=== PATIENT | female | born 1995 | race Caucasian/White ===

== ENCOUNTER → 2017-12-02 | Outpatient (CLI) | payer BC ==
[2017-12-02 18:31] LABS: T.VAGINALIS (WET MOUNT) NO TRICHOMONAS SEEN
[2017-12-02 18:32] LABS: BACTERIA (WET MOUNT) 3+ BACTERIA SEEN; RBCS (WET MOUNT) 1+ RBCS SEEN; WBCS (WET MOUNT) 2+ WBCS SEEN; YEAST (WET MOUNT) NO YEAST SEEN
== END ==
LOC: LAB 18:20
PROVIDERS: ATTEND Emergency Medicine
DX: N89.8 Other specified noninflammatory disorders of vagina (principal)
CPT/HCPCS: 87210

== ENCOUNTER 2017-12-17 02:09 | Emergency (ER) | payer BC, OTHER ==
[2017-12-17] MEDS ORDERED: LIDOCAINE 5% (700 MG) TRANSDERMAL ADH..PATCH TP ONE (02:35)
[2017-12-17] MEDS ORDERED: IBUPROFEN 600 MG TABLET PO ONE (02:35)
[2017-12-17] MEDS ORDERED: ACETAMINOPHEN 325 MG TABLET PO ONE (02:35)
--- NOTE | 2017-12-17 03:21 | ER Document Report ---
ED General - General Chief Complaint: Knee Injury Stated Complaint: KNEE INJURY Time Seen by Provider: 12/17/17 02:35 Notes: Patient is a 22-year-old female without past medical history who presents with 24 hours of medial left knee pain. 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 He describes it as a mild, throbbing, constant pain. She states that she heard a crack or pop while doing lunges at the gym 2 days ago but did not have any pain until today when she was on her feet most of the day. She states that she went home the pain improved actually iced and rested the area. She states however that she did notice some swelling and that prompted her come to the emergency department for further assessment. She denies any history of similar injury in the past. She is able to ambulate without difficulty. She denies any additional injuries or concerns. She has not seen a primary care doctor regarding these concerns. TRAVEL OUTSIDE OF THE [place] IN LAST 30 DAYS: No - Related Data Allergies/Adverse Reactions: No Known Allergies Allergy (Unverified 12/17/17 02:24) Past Medical History - General Information source: Patient - Social History Smoking Status: Never Smoker Frequency of alcohol use: None Drug Abuse: None Lives with: Friend Family History: Reviewed & Not Pertinent Patient has suicidal ideation: No Patient has homicidal ideation: No Renal/ Medical History: Denies: Hx Peritoneal Dialysis Review of Systems - Review of Systems Notes: Constitutional: Negative for fever. Eyes: Negative for visual changes. ENT: Negative for facial injury Cardiovascular: Negative for chest injury. Respiratory: Negative for shortness of breath. Gastrointestinal: Negative for abdominal injury. Genitourinary: Negative for genital injury Musculoskeletal: Positive for right knee injury Skin: Negative for laceration/abrasions. Neurological: Negative for head injury. Physical Exam - Vital signs Vitals: Temp Pulse Resp BP Pulse Ox 97.6 F 86 16 132/97 H 98 12/17/17 02:22 12/17/17 02:22 12/17/17 02:22 12/17/17 02:22 12/17/17 02:22 Interpretation: Normal Notes: PHYSICAL EXAMINATION: GENERAL: Well-appearing, well-nourished and in no acute distress. HEAD: Atraumatic, normocephalic. EYES: sclera anicteric, conjunctiva are normal. ENT: Moist mucous membranes. NECK: Normal range of motion LUNGS: Normal work of breathing HEART: 2+ radial pulses bilaterally, 2+ DP pulses bilaterally EXTREMITIES: no pitting or edema. No cyanosis. Full flexion extension of the left knee without any difficulty. The patient is able to move the knee in full extension without any difficulty. She is able to flex the knee to 90 without complication. There is no significant swelling, ecchymosis or deformity of the knee. NEUROLOGICAL: No focal neurological deficits. Moves all extremities spontaneously and on command. PSYCH: Normal mood, normal affect. SKIN: Warm, Dry, normal turgor, no rashes or lesions noted. Course - Re-evaluation Re-evalutation: 12/17/17 03:19 No evidence of a septic joint, gout flare, dislocation, or fracture on exam and imaging. Patient's clinical history is most consistent with a ligamentous injury likely the lateral collateral ligament of the knee. She has full range of motion of the knee without any difficulty. No significant swelling, bruising or deformity to the knee. BETO greater than 0.9. Vitals wnl. At this time, I do not see an indication for labs or further imaging. At this time will discharge with return precautions and follow-up recommendations. Verbal discharge instructions given a the bedside and opportunity for questions given. Medication warnings reviewed. Patient is in agreement with this plan and has verbalized understanding of return precautions and the need for primary care follow-up in the next 24-72 hours. - Vital Signs Vital signs: Temp Pulse Resp BP Pulse Ox 97.6 F 86 16 132/97 H 98 12/17/17 02:22 12/17/17 02:22 12/17/17 02:22 12/17/17 02:22 12/17/17 02:22 - Diagnostic Test Radiology reviewed: Image reviewed, Reports reviewed Radiology results interpreted by me: 12/17/17 03:51 Left knee x-ray: No acute fracture or dislocation Discharge - Discharge Clinical Impression: Left knee pain Qualifiers: Chronicity: acute Qualified Code(s): M25.562 - Pain in left knee Condition: Good Disposition: HOME, SELF-CARE Additional Instructions: Your x-ray does not show any acute fracture today. You likely have a ligamentous strain. You should continue to take anti-inflammatories such as ibuprofen 600 mg every 6 hours. Continue to apply ice to the area is much your able. Please follow-up with your primary care physician if you do not have improving your symptoms in the next 1-2 weeks. Please return immediately if you develop weakness, numbness, spreading redness from the area, or any other symptoms that are concerning to you.
--- NOTE | 2017-12-17 03:57 | RADIOLOGY REPORT (SQ) ---
EXAM DESCRIPTION: KNEE LEFT 4 VIEW CLINICAL HISTORY: 22 years, Female, pain s/p injury COMPARISON: None. NUMBER OF VIEWS: 4 LIMITATIONS: None. Findings: Bones, joints, and soft tissues of KNEE LEFT 4 VIEW appear intact. 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 IMPRESSION: No acute findings.
[2017-12-17 04:38] VITALS: BP 128/68
== END 2017-12-17 04:38 | disposition home or self-care (01) ==
LOC: ER 02:09
DX: M25.562 Pain in left knee (principal)
CPT/HCPCS: 99283

== ENCOUNTER → 2018-02-20 | Outpatient (CLI) | payer SELFPAY ==
[2018-02-20 14:57] LABS: T.VAGINALIS (WET MOUNT) NO TRICHOMONAS SEEN
[2018-02-20 14:58] LABS: BACTERIA (WET MOUNT) 4+ BACTERIA SEEN; EPITHELIALS (WET MOUNT) 3+ EPITHELIALS SEEN; RBCS (WET MOUNT) NO RBCS SEEN; WBCS (WET MOUNT) 1+ WBCS SEEN; YEAST (WET MOUNT) NO YEAST SEEN
[2018-02-20 16:25] LABS: CHLAM PCR NOT DETECTED (NOT DETECT); GON PCR NOT DETECTED (NOT DETECT)
== END ==
LOC: LAB 14:44
PROVIDERS: ATTEND Nurse Practitioner Acute Care
DX: N89.8 Other specified noninflammatory disorders of vagina (principal)
CPT/HCPCS: 87210; 87491; 87591

== ENCOUNTER 2018-05-05 14:47 | Emergency (ER) | payer BC ==
[2018-05-05] MEDS ORDERED: IBUPROFEN 800 MG TABLET PO ONE (15:58)
--- NOTE | 2018-05-05 15:59 | ER Document Report ---
ED Extremity Problem, Lower - General Chief Complaint: Toe Injury Stated Complaint: TOE INJURY Time Seen by Provider: 05/05/18 15:56 Mode of Arrival: Wheelchair Information source: Patient Notes: 23-year-old female presents to ED for complaint of right fifth toe pain. She states she not sure how she injured her toe but she injured it last night while she was drinking. She states she has had severe pain all day in her foot and is not been able to walk on her foot due to the pain. TRAVEL OUTSIDE OF THE [place] IN LAST 30 DAYS: No - HPI Patient complains to provider of: Injury, Pain, Swelling Location: 5th Toe - Right Occurred: Yesterday Where: Public place Onset/Duration: Persistent Quality of pain: Sharp, Throbbing Severity: Moderate Pain Level: 4 Context: Wearing shoes Recent injury: Yes Associated symptoms: Painful ambulation, Other - She is not sure how she injured her foot Exacerbated by: Hanging down, Movement, Walking - Related Data Allergies/Adverse Reactions: No Known Allergies Allergy (Verified 05/05/18 14:49) Past Medical History - General Information source: Patient - Social History Smoking Status: Current Every Day Smoker Cigarette use (# per day): Yes - Pack per day Chew tobacco use (# tins/day): No Smoking Education Provided: Yes - 4 min Frequency of alcohol use: Social Drug Abuse: None Occupation: Chest Lives with: Friend Family History: Reviewed & Not Pertinent Patient has suicidal ideation: No Patient has homicidal ideation: No - Past Medical History Cardiac Medical History: Reports: None Pulmonary Medical History: Reports: None EENT Medical History: Reports: None Neurological Medical History: Reports: None Endocrine Medical History: Reports: None Renal/ Medical History: Reports: None Malignancy Medical History: Reports: None GI Medical History: Reports: None Musculoskeletal Medical History: Reports Hx Musculoskeletal Trauma Skin Medical History: Reports None Psychiatric Medical History: Reports: Hx Depression Traumatic Medical History: Reports: Hx Fractures - Left arm Infectious Medical History: Reports: None Past Surgical History: Reports: Hx Oral Surgery - Oral surgery and wisdom teeth , Hx Tonsillectomy - Immunizations Immunizations up to date: Yes Review of Systems - Review of Systems Constitutional: No symptoms reported EENT: No symptoms reported Cardiovascular: No symptoms reported Respiratory: No symptoms reported Gastrointestinal: No symptoms reported Genitourinary: No symptoms reported Female Genitourinary: No symptoms reported Musculoskeletal: Other - Discomfort to the right fifth toe Skin: No symptoms reported Hematologic/Lymphatic: No symptoms reported Neurological/Psychological: No symptoms reported -: Yes All other systems reviewed and negative Physical Exam - Vital signs Vitals: Temp Pulse Resp BP Pulse Ox 98 F 94 14 121/89 H 99 05/05/18 14:50 05/05/18 14:50 05/05/18 14:50 05/05/18 14:50 05/05/18 14:50 Interpretation: Normal - General General appearance: Appears well, Alert - HEENT Head: Normocephalic, Atraumatic Eyes: Normal Pupils: PERRL - Respiratory Respiratory status: No respiratory distress Chest status: Nontender Breath sounds: Normal Chest palpation: Normal - Cardiovascular Rhythm: Regular Heart sounds: Normal auscultation Murmur: No - Abdominal Inspection: Normal Distension: No distension Bowel sounds: Normal Tenderness: Nontender Organomegaly: No organomegaly - Back Back: Normal, Nontender - Extremities General upper extremity: Normal inspection, Nontender, Normal color, Normal ROM , Normal temperature General lower extremity: Normal color, Normal ROM, Normal temperature, Normal weight bearing. No: Shirley's sign Foot: Tender, Deformity, Ecchymosis, No evidence of FB, Other - Right fifth toe deformity pain swelling. No: Edema, Instability, Laceration, Metatarsal compress. pain, Nail injury, Navicular tenderness, Puncture wound, Tender 5th metatarsal - Neurological Neuro grossly intact: Yes Cognition: Normal Orientation: AAOx4 [place] Coma Scale Eye Opening: Spontaneous Lauren Coma Scale Verbal: Oriented [place] Coma Scale Motor: Obeys Commands Lauren Coma Scale Total: 15 Speech: Normal Motor strength normal: LUE, RUE, LLE, RLE Sensory: Normal - Psychological Associated symptoms: Normal affect, Normal mood - Skin Skin Temperature: Warm Skin Moisture: Dry Skin Color: Normal Course - Re-evaluation Re-evalutation: 05/05/18 18:30 Has been waiting for patient to get a ride so I could reduce the dislocation to her right fifth toe. I have offered a digital block the toe multiple times and patient refused. She agreed to have the toe reduced if I gave her narcotics and she had a ride. Patient finally agreed to have the toe reduced with a digital block and while I was waiting to get her put into the room she finally got a ride and now does not want a digital block. - Vital Signs Vital signs: Temp Pulse Resp BP Pulse Ox 98 F 18 L 16 130/80 H 100 05/05/18 19:21 05/05/18 19:21 05/05/18 19:21 05/05/18 19:21 05/05/18 19:21 - Diagnostic Test Radiology reviewed: Image reviewed, Reports reviewed Procedures - Immobilization Right Toe 5th digit Time completed: 19:28 Pre-Proc Neuro Vasc Exam: Normal Immobilizer type: Crutches, Post-op shoe, Other - Fifth toe taped to fourth toe Performed by: RN Post-Proc Neuro Vasc Exam: Normal Alignment checked and good: Yes - Joint Reduction/Fracture Care Right Toe 5th digit Time completed: 19:00 Consent obtained: Yes - verbal Conscious sedation: No Pre-procedure NV exam: Yes - normal Manipulation comment: Constant pressure to plantar surface demonstrate out Post-reduction x-ray: Joint reduced Reduction attempts: 1 Complications: No - Joint was reduced Discharge - Discharge Clinical Impression: Dislocation of fifth toe, right, closed Qualifiers: Encounter type: initial encounter Qualified Code(s): S93.104A - Unspecified dislocation of right toe(s), initial encounter Condition: Stable Disposition: HOME, SELF-CARE Additional Instructions: Dislocation You have suffered a dislocation of your joint. It has been reduced (put back in place). It will take time for the tissues around the joint to heal. The joint will be immobilized at first. If possible, elevate the injured area and apply ice packs. After healing is underway, the joint will require [id number] and strengthening exercises. The follow-up care is important in avoiding residual problems following your dislocation. If you note any numbness, muscle weakness, or severe swelling in the affected area, call the doctor or return for re-evaluation at once. Chelsi Taping Your toes have been taped together -- called "chelsi taping." The good toe can act as a moving splint to protect the injured toe. You will probably need to keep the tape in place (replacing it when needed) for about three weeks. A firm shoe over the injured toes is usually a good idea. As a general rule, you shouldn't do anything which causes pain to your taped toes. Taping isn't absolute protection, so match your activity to your degree of healing. If you ever suspect that you have re-injured the toe, return for re-examination. Keep the tape dry. Constant wetness harms the skin. Some cotton between the toes may help if perspiration is a problem. Replace the tape as needed when it becomes loose, weak, or dirty. Replace the tape daily if you are sweating. If the toes swell, discolor, or become numb, loosen the tape. Return here if there are problems. Post-Op Shoe You are to use a "post-op shoe," sometimes also called a "bunnion shoe." This shoe helps protect minor fractures, sprains, and other injuries of the toes or foot. You may remove the shoe for bathing. Walk carefully. If you're feeling pain, put less weight on the foot, take smaller steps, or use a cane. If you have a new injury, you may need to use crutches for the first couple of days. If pain still prevents walking after a few days, contact the doctor. If there's unexpected pain in your foot, if blisters or sore spots develop , or if the shoe is physically coming apart, return at once. Remember that you' re welcome to come in at any time to have the fit of the shoe checked and adjusted. USE OF CRUTCHES: The doctor has recommended that you not bear weight at this time. You will need to use crutches. Adjust the crutches so the tops come to about two inches under the armpit while you are standing upright. Use your hands -- not your armpits -- to support your weight. To get into a chair, support yourself with one crutch on the injured side. Hold the chair with the other hand, then lower yourself while putting all your weight on the good leg. Going up stairs is `good leg up, step up, then bring up crutches and bad leg.' Down stairs is `bad leg and crutches down, then bring good leg down.' If you develop numbness or swelling in an arm or hand, you are using the crutches incorrectly. Return if you are having any problems with the crutches. ICE & ELEVATION: Apply ice packs frequently against the painful area. Many different schedules are recommended, such as "20 minutes on, 20 minutes off" or "one hour ice, two hours rest." If you need to work, you may need to go longer between ice treatments. You should plan to have the area ice packed AT LEAST one- fourth of the time. The ice should be applied over the wrap, tape, or splint, or over a layer of cloth -- not directly against the skin. Some ice bags have a built-in cloth and can be put directly on the skin. Your injured part should be elevated as much as possible over the next 48 hours. Try to keep the injury above the level of the heart. Avoid use of the injured area. Elevation and rest will decrease the swelling. USE OF [id number] IBUPROFEN: Ibuprofen (Advil, Nuprin, Medipren, Motrin IB) is a medication for fever and pain control. In addition, it has anti- inflammatory effects which may be beneficial, especially in the treatment of injuries. It's best to take ibuprofen with food. Persons with ulcer disease or allergy to aspirin should notify their physician of this before taking ibuprofen. Ibuprofen can be given every four to six hours, for a total of four doses daily. Age Pain or fever dose Antiinflammatory dose 6-8 yr 200 mg (1 tab) 200 mg (1 tab) 9-11 yr 200 mg (1 tab) 200-400 mg (1-2 tab) 11-14 yr 200-400 mg (1-2 tab) 400 mg (2 tab) 15-adult 400 mg (2 tab) 600 mg (3 tab) ORAL NARCOTIC MEDICATION: You have been given a prescription for pain control. This medication is a narcotic. It's best taken with food, as nausea can result if taken on an empty stomach. Don't operate machinery or drive within six hours of taking this medication. Do not combine this medicine with alcohol, or with any medication which can cause sedation (such as cold tablets or sleeping pills) unless you get permission from the physician. Narcotics tend to cause constipation. If possible, drink plenty of fluids and eat a diet high in fiber and fruits. Please be aware that prescription narcotics also have the potential for abuse. People become addicted to these medications because of the general sense of wellbeing that they induce. This feeling along with a significant reduction in tension, anxiety, and aggression provides a stimulating seductive quality to these drugs. Once your pain is under control, we encourage you to discard your unused narcotics. FOLLOW-UP CARE: If you have been referred to a physician for follow-up care, call the physician s office for an appointment as you were instructed or within the next two days. If you experience worsening or a significant change in your symptoms, notify the physician immediately or return to the Emergency Department at any time for re-evaluation. Prescriptions: Oxycodone HCl/Acetaminophen [Percocet 5-325 mg Tablet] 1 tab PO Q6HP PRN #5 tablet PRN Reason: Forms: Elevated Blood Pressure, Smoking Cessation Education, Return to Work Referrals: HERNANDEZ LAWRENCE NP [Primary Care Provider] - Follow up as needed SOPHIE PADRON MD [ACTIVE STAFF] - Follow up as needed
--- NOTE | 2018-05-05 16:42 | RADIOLOGY REPORT (SQ) ---
EXAM DESCRIPTION: FOOT RIGHT COMPLETE COMPLETED DATE/TIME: 05/05/2018 4:24 pm REASON FOR STUDY: pain injury,swelling 5th toe for 2 days COMPARISON: None. NUMBER OF VIEWS: Three views. TECHNIQUE: AP, lateral and oblique radiographic images acquired of the right foot. LIMITATIONS: None. FINDINGS: MINERALIZATION: Normal. BONES: Dislocation of the right pinky toe middle phalanx at the PIP joint. No fractures JOINTS: Dislocation of the right pinky toe middle phalanx at the PIP joint. No fracture. SOFT TISSUES: No soft tissue swelling. No foreign body. OTHER: No other significant finding. IMPRESSION: Dislocation of the right pinky toe middle phalanx at the PIP joint. No fracture TECHNICAL DOCUMENTATION: JOB ID: [id number] [employer]- All Rights Reserved Reading location - IP/workstation name: [email or web address]
[2018-05-05] MEDS ORDERED: LIDOCAINE 1% INJ-PF (10 MG/ML) 30 ML SDV INJ ONE (18:21)
[2018-05-05] MEDS ORDERED: OXYCODONE-ACETAMINOPHEN 5-325 MG TABLET PO ONE (18:24)
[2018-05-05 19:22] VITALS: BP 130/80
--- NOTE | 2018-05-05 20:00 | RADIOLOGY REPORT (SQ) ---
EXAM DESCRIPTION: FOOT RIGHT 2 VIEWS COMPLETED DATE/TIME: 05/05/2018 7:11 pm REASON FOR STUDY: post reduction COMPARISON: 05/05/2018 earlier study. FINDINGS: 2 images are obtained of the right foot, PA and oblique. The pinky dislocation has been r educed. No fracture. TECHNICAL DOCUMENTATION: JOB ID: [id number] Reading location - IP/workstation name: [email or web address]
== END 2018-05-05 19:45 | disposition home or self-care (01) ==
LOC: ER 14:47
DX: S93.114A Dislocation of interphalangeal joint of right lesser toe(s), initial encounter (principal); X58.XXXA Exposure to other specified factors, initial encounter; F17.210 Nicotine dependence, cigarettes, uncomplicated; Z71.6 Tobacco abuse counseling
CPT/HCPCS: 99283; 99406